=== PATIENT | male | born 1990 | race Caucasian/White ===

== ENCOUNTER 2018-05-23 10:53 | Emergency (ER) | payer OTHER | END 2018-05-23 11:57 | disposition home or self-care (01) | LOC: FTE 10:53 | DX: H66.90 Otitis media, unspecified, unspecified ear (principal); J45.909 Unspecified asthma, uncomplicated | CPT/HCPCS: 99283; Z7502 ==

== ENCOUNTER 2018-09-19 22:23 | Emergency (ER) | payer OTHER | END 2018-09-19 23:50 | disposition home or self-care (01) | LOC: FTE 22:23 | DX: H66.91 Otitis media, unspecified, right ear (principal); J45.909 Unspecified asthma, uncomplicated; Z87.891 Personal history of nicotine dependence | CPT/HCPCS: 99283; Z7502 ==

== ENCOUNTER 2018-12-21 23:21 | Emergency (ER) | payer OTHER | END 2018-12-22 00:31 | disposition home or self-care (01) | LOC: FTE 12-22 00:31 | DX: R10.13 Epigastric pain (principal); J45.909 Unspecified asthma, uncomplicated | CPT/HCPCS: 99282; Z7502 ==